=== PATIENT | female | born 1940 | race Caucasian/White ===

== ENCOUNTER 2018-10-23 21:14 | Emergency (ER) | payer OTHER, MEDICARE ==
[2018-10-23 21:29] VITALS: BP 151/60; PULSE 80; TEMP 97.7; BMI 26.2
--- NOTE | 2018-10-23 21:32 | PDOC ---
History of Present Illness - General History Source: Patient Exam Limitations: No Limitations - History of Present Illness Initial Comments: 10/23/18 21:43 The patient is a 78 year old female with no significant past medical history of who presents to the emergency department with L little finger injury. The patient [place] was in the city, [place] down to cone pick[place] a [place] and hit her hand on a metal barrier. The patient states she did not feel any pain at the onset of her pain, however, she has been icing it. The patient denies falling or LOC. The patient denies chest pain, shortness of breath, headache or dizziness. The patient denies fever, chills, nausea, vomit, diarrhea or constipation. The patient denies dysuria, frequency, or urgency. PAST MEDICAL HISTORY: no significant history PAST SURGICAL HISTORY: no significant history FAMILY HISTORY: no pertinent history SOCIAL HISTORY: Pt lives with family and is employed. MEDICATIONS: reviewed ALLERGIES: As per nursing notes <Otoniel Matt - Last Filed: 10/23/18 21:43> - General History Source: Patient Exam Limitations: No Limitations - History of Present Illness Initial Comments: A portion of this note was documented by scribe services under my direction. I have reviewed the details of the note, within reason, and agree with the documentation with the following case summary and management plan written by me. Patient treated in the ED. Nursing notes are reviewed and incorporated into the medical decision-making. Vital signs reviewed. Assessment and plan: This is a 78-year-old female who comes in post injuring her left middle finger. Patient has a extensor tendon injury and is unable to fully extend her distal phalanx of her little finger. X-ray was negative for any acute pathology Finger was splinted in full extension Patient was referred to the orthopedist for follow-up and discharged home 10/23/18 22:11 <Tatyana Harrington I - Last Filed: 10/23/18 22:15> - General Chief Complaint: Injury Stated Complaint: LH 5TH FINGER INJURY Time Seen by Provider: 10/23/18 21:16 Past History <Otoniel Matt - Last Filed: 10/23/18 21:43> - Past Medical History COPD: No HTN: Yes Hypercholesterolemia: Yes - Suicide/Smoking/Psychosocial Hx Smoking History: Never smoked Hx Alcohol Use: No Drug/Substance Use Hx: No Substance Use Type: None <Tatyana Harrington I - Last Filed: 10/23/18 22:15> - Past Medical History Allergies/Adverse Reactions: Allergies Allergy/AdvReac Type Severity Reaction Status Date / Time No Known Allergies Allergy Verified 04/13/16 15:56 Home Medications: Ambulatory Orders Amlodipine Besylate 5 mg PO DAILY 04/13/16 Benazepril HCl [Lotensin] 20 mg PO DAILY 04/13/16 Metoprolol Succinate [Toprol Xl] 50 mg PO DAILY 04/13/16 Simvastatin [Zocor -] 20 mg PO HS 04/13/16 Review of Systems - Review of Systems Able to Perform ROS?: Yes Comments:: 10/23/18 21:43 General: No fevers or chills, no weakness, no weight loss HEENT: No change in vision. No sore throat,. No ear pain CardioVascular: No chest pain or shortness of breath Respiratory:No cough, or wheezing. Gastrointestinal: no nausea, vomiting, diarrhea or constipation, No rectal bleeding Genitourinary: No dysuria, hematuria, or frequency Musculoskeletal: No joint or muscle pain or swelling Neurologic: No headache, vertigo, dizziness or loss of consciousness Psychiatric: nor depression Extremities: (+) L little finger injury. Skin: No rashes or easy bruising Endocrine: no increased thirst or abnormal weight change Allergic: no skin or latex allergy All other systems reviewed and normal <Otoniel Matt - Last Filed: 10/23/18 21:43> *Physical Exam - Vital Signs Last Vital Signs Temp Pulse Resp BP Pulse Ox 97.7 F 80 16 151/60 98 10/23/18 21:19 10/23/18 21:19 10/23/18 21:19 10/23/18 21:19 10/23/18 21:19 - Physical Exam Comments: 10/23/18 21:44 GENERAL: The patient is awake, alert, and fully oriented, in no acute distress. HEAD: Normal with no signs of trauma. EYES: Pupils equal, round and reactive to light, extraocular movements intact, sclera anicteric, conjunctiva clear. EXTREMITIES: (+) L hand 5th finger distal phalanx. (+) unable to extend distal phalanx. DIP joint neurovascular intact. Normal range of motion, no edema. No ecchymosis. NEUROLOGICAL: Normal speech, normal gait. PSYCH: Normal mood, normal affect. SKIN: Warm, Dry, normal turgor, no rashes or lesions noted. <Otoniel Matt - Last Filed: 10/23/18 21:43> - Vital Signs Last Vital Signs Temp Pulse Resp BP Pulse Ox 97.7 F 80 16 151/60 98 10/23/18 21:19 10/23/18 21:19 10/23/18 21:19 10/23/18 21:19 10/23/18 21:19 <Tatyana Harrington I - Last Filed: 10/23/18 22:15> Moderate Sedation - Procedure Monitoring Vital Signs: Procedure Monitoring Vital Signs Temperature 97.7 F 10/23/18 21:19 Pulse Rate 80 10/23/18 21:19 Respiratory Rate 16 10/23/18 21:19 Blood Pressure 151/60 10/23/18 21:19 O2 Sat by Pulse Oximetry (%) 98 10/23/18 21:19 <Otoniel Matt - Last Filed: 10/23/18 21:43> - Procedure Monitoring Vital Signs: Procedure Monitoring Vital Signs Temperature 97.7 F 10/23/18 21:19 Pulse Rate 80 10/23/18 21:19 Respiratory Rate 16 10/23/18 21:19 Blood Pressure 151/60 10/23/18 21:19 O2 Sat by Pulse Oximetry (%) 98 10/23/18 21:19 <Tatyana Harrington I - Last Filed: 10/23/18 22:15> *DC/Admit/Observation/Transfer - Attestations Scribe Attestion: 10/23/18 21:44 Documentation prepared by Otoniel Matt, acting as medical staff assistant for Tatyana Harrington MD <Otoniel Matt - Last Filed: 10/23/18 21:43> - Discharge Dispostion Decision to Admit order: No <Tatyana Harrington I - Last Filed: 10/23/18 22:15> Diagnosis at time of Disposition: Extensor tendon disruption - Discharge Dispostion Disposition: HOME Condition at time of disposition: Stable - Referrals Referrals: Rey Dunlap [Primary Care Provider] - Aren Carter MD [Staff Physician] - - Patient Instructions Additional Instructions: Leave the splint in place and follow-up with an orthopedist. Make sure you keep the splint dry. If he needed an orthopedist call Dr. Millan for an appointment. Return to the emergency department immediately with ANY new, persistent or worsening symptoms. Continue any medications as previously prescribed by your physician. You should follow up with your primary doctor as soon as possible regarding today's emergency department visit. . Please make sure your doctor reviews the results of your emergency evaluation. Thank you for coming to the Emergency Department today for your care. It was a pleasure to see you today. Please note that your evaluation is INCOMPLETE until you follow-up with your doctor. - Post Discharge Activity
== END 2018-10-23 22:19 | disposition home or self-care (01) ==
LOC: FER 21:14
PROC: 2W3KX1Z Immobilization of Left Finger using Splint (ICD-10-PCS; principal; 2018-10-23)
DX: T14.8XXA Other injury of unspecified body region, initial encounter (principal); W22.09XA Striking against other stationary object, initial encounter; Y93.89 Activity, other specified; Y92.410 Unspecified street and highway as the place of occurrence of the external cause; I10 Essential (primary) hypertension; E78.00 Pure hypercholesterolemia, unspecified
CPT/HCPCS: 73140-TC-LT-FY; 99282-25